=== PATIENT | male | born 1945 | race Caucasian/White ===

== ENCOUNTER 2022-11-12 09:21 | Day surgery (SDC) | payer MEDICARE ==
[~2022-11-12] VITALS: Ht 167.6 cm; Wt 79.9 kg
[~2022-11-12 09:21] MED LIST: ACID1TAB PO; AMLO10TA PO; ATOR40TA75 PO; B COCAP4 PO; CETI10CA13 PO; D 1010002 PO; ELIQ5TAB PO; FINA5TAB2 PO; FLOM0.4C39 PO; LIDOCAINE 1% SDV 5ML VIAL As Ordered ONE; LR 1,000 ML IV SCH; MAGN400T2 PO; METF500T13 PO; METO200T28 PO; OMEP-173 PO; RAMI1CAP26 PO
[2022-11-12] MEDS ORDERED: TETRACAINE 0.5% OPHTH SOLN 4ML OD SCH (11:35)
[2022-11-12] MEDS ORDERED: CYCLOPENTOLATE 1% OPHTH SOLN 2ML BTL OD SCH (11:35)
[2022-11-12] MEDS ORDERED: PHENYLEPHRINE 2.5% OPHTH SOL 2ML OD SCH (11:35)
[2022-11-12] MEDS ORDERED: FLURBIPROFEN 0.03% OPHTH SOLN 2.5 ML OD SCH (11:35)
[2022-11-12] MEDS ORDERED: MIDAZOLAM INJ 2MG/2ML VIAL As Ordered ONE (12:59)
[2022-11-12] MEDS ORDERED: fentaNYL 100 MCG/2 ML INJECTION As Ordered ONE (13:00)
[2022-11-12 14:05] VITALS: BP 132/89; TEMP 96.8; O2SAT 95
== END 2022-11-12 14:09 | disposition home or self-care (01) ==
LOC: M SDC 09:21
PROVIDERS: ATTEND Ophthalmology
DX: H25.11 Age-related nuclear cataract, right eye (principal); I10 Essential (primary) hypertension; E11.9 Type 2 diabetes mellitus without complications; E78.5 Hyperlipidemia, unspecified; N40.0 Benign prostatic hyperplasia without lower urinary tract symptoms; Z79.84 Long term (current) use of oral hypoglycemic drugs; Z79.899 Other long term (current) drug therapy; Z87.891 Personal history of nicotine dependence; Z98.61 Coronary angioplasty status
CPT/HCPCS: 66984; J2250; J3010; V2632